=== PATIENT | female | born 1990 | race American Indian/Alaskan Native ===

== ENCOUNTER 2017-12-04 13:53 | Emergency (ER) | payer OTHER ==
--- NOTE | 2017-12-04 15:05 | Emergency Department Report ---
Blank Doc - Documentation Documentation: 27-year-old female with no past medical history presents to the hospital 20 weeks with her first with complaints of nasal congestion, sore throat , dry cough, and subjective fevers for the past 5 days. Today patient further, heart was racing. Positive shortness of breath reported without any calf tenderness, edema, recent travel, or history of PE/DVT. Patient taken over-the- counter cough and cold medicine but does not know all the ingredients in the medications. Positive care. Saad: Dr. López EKG sinus tach rate [address] elevation [place] focussed exam Tachycardic heart rate exam regular rhythm (rate 108) Positive nasal congestion No posterior pharyngeal exudates Lungs clear to auscultation abdomen nontender Labs ordered CBC, BMP, thyroid, INR Patient transferred to the main side for evaluation
--- NOTE | 2017-12-04 15:18 | Emergency Department Report ---
ED General Adult HPI - General Chief complaint: Arrhythmia/Palpitations Stated complaint: PALPITATIONS Time Seen by Provider: 12/04/17 14:51 Source: patient Mode of arrival: Ambulatory Limitations: No Limitations - History of Present Illness Initial comments: Patient is 27 years old female 20 weeks . Patient presented to the ER complaining of palpitation. Patient stated that she's been having runny nose cough congestion for the last 4 days. Today she took [id number] cough medicine that has Benadryl in it, she stated that as soon as she took it she started having palpitation. Patient denied any chest pain, shortness of breath or fever. Patient stated that baby is moving well, denied any abdominal pain, vaginal bleeding or vaginal discharge. - Related Data Previous Rx's Medication Instructions Recorded Last Taken Type Amoxicillin [Amoxicillin TAB] 875 mg PO BID #14 tablet 12/04/17 Unknown Rx Fluticasone [Flonase] 1 spray NS QDAY #1 bottle 12/04/17 Unknown Rx Allergies Allergy/AdvReac Type Severity Reaction Status Date / Time No Known Allergies Allergy Unverified 12/04/17 14:10 ED Review of Systems ROS: Stated complaint: PALPITATIONS Other details as noted in HPI Comment: All other systems reviewed and negative Constitutional: denies: chills, fever Respiratory: cough. denies: shortness of breath, SOB with exertion, SOB at rest , wheezing Cardiovascular: denies: chest pain, palpitations, dyspnea on exertion, orthopnea Gastrointestinal: denies: abdominal pain, nausea, vomiting, diarrhea, constipation, hematemesis, melena, hematochezia Genitourinary: denies: urgency, dysuria, frequency, hematuria, discharge Neurological: denies: headache, weakness, numbness, paresthesias ED Past Medical Hx - Past Medical History Previous Medical History?: No - Surgical History Past Surgical History?: No - Social History Smoking Status: Never Smoker Substance Use Type: None - Medications Home Medications: Home Medications Medication Instructions Recorded Confirmed Last Taken Type Amoxicillin [Amoxicillin TAB] 875 mg PO BID #14 tablet 12/04/17 Unknown Rx Fluticasone [Flonase] 1 spray NS QDAY #1 bottle 12/04/17 Unknown Rx ED Physical Exam - General Limitations: No Limitations General appearance: alert, in no apparent distress - Head Head exam: Present: atraumatic, normocephalic, normal inspection - Eye Eye exam: Present: normal appearance - ENT ENT exam: Present: normal exam, normal orophraynx, mucous membranes moist - Neck Neck exam: Present: normal inspection, full ROM. Absent: tenderness, meningismus, lymphadenopathy, thyromegaly - Respiratory Respiratory exam: Present: normal lung sounds bilaterally. Absent: respiratory distress, wheezes, rales, rhonchi, stridor, chest wall tenderness, accessory muscle use, decreased breath sounds, prolonged expiratory - Cardiovascular Cardiovascular Exam: Present: regular rate, normal rhythm, normal heart sounds. Absent: tachycardia - GI/Abdominal GI/Abdominal exam: Present: soft, normal bowel sounds, other (gravid uterus). Absent: distended, tenderness, guarding, rebound, rigid, mass, bruit, pulsatile mass, hernia - Extremities Exam Extremities exam: Present: normal inspection, full ROM, normal capillary refill. Absent: tenderness, pedal edema, joint swelling, calf tenderness - Back Exam Back exam: Present: normal inspection, full ROM. Absent: tenderness, CVA tenderness (R), CVA tenderness (L), muscle spasm, paraspinal tenderness, vertebral tenderness - Neurological Exam Neurological exam: Present: alert, oriented X3, CN II-XII intact, normal gait, reflexes normal - Skin Skin exam: Present: warm, intact, normal color ED Course Vital Signs 12/04/17 12/04/17 12/04/17 14:06 14:54 15:15 Temperature 98.1 F Pulse Rate 109 H 108 H 99 H Respiratory 20 13 Rate Blood Pressure 131/75 126/79 Blood Pressure [Right] O2 Sat by Pulse 100 98 100 Oximetry 12/04/17 12/04/17 12/04/17 15:16 15:17 16:00 Temperature 98.2 F Pulse Rate 96 H 98 H Respiratory 18 18 20 Rate Blood Pressure 121/79 Blood Pressure 117/74 [Right] O2 Sat by Pulse 100 100 Oximetry 12/04/17 17:00 Temperature Pulse Rate 96 H Respiratory 19 Rate Blood Pressure 121/79 Blood Pressure [Right] O2 Sat by Pulse 99 Oximetry ED Medical Decision Making - Lab Data Result diagrams: 12/04/17 15:49 12/04/17 15:49 - EKG Data -: EKG Interpreted by Pa EKG shows normal: sinus rhythm Rate: tachycardia - EKG Data Interpretation: no acute changes - Medical Decision Making Patient stated that her symptoms is completely resolved. However heart rate now is 85 beats per minutes. Patient denied any chest pain or shortness of breath. No clinical evidence of pulmonary embolism. I believe this patient's symptom is most likely due to [id number] cough medicine since her symptoms started immediately after she took that medicine. I advised the patient to follow up with her primary care physician in the next 2-3 days and to return to the ER if her symptoms are not improving. Critical care attestation.: If time is entered above; I have spent that time in minutes in the direct care of this critically ill patient, excluding procedure time. ED Disposition Clinical Impression: Sinusitis, Palpitation Disposition: DC-01 TO HOME OR SELFCARE Is pt being admited?: No Condition: Stable Instructions: Palpitations (ED), Sinusitis (ED) Prescriptions: Amoxicillin [Amoxicillin TAB] 875 mg PO BID #14 tablet Fluticasone [Flonase] 1 spray NS QDAY #1 bottle Referrals: PRIMARY CARE, [Primary Care Provider] - 3-5 Days Forms: Work/School Release Form(ED)
[2017-12-04 16:09] LABS: Basophils % (Auto) 0.3 % (0.0-1.8); Eosinophils % (Auto) 0.7 % (0.0-4.3); Hematocrit 29.4 % (30.3-42.9); Hemoglobin 9.9 gm/dl (10.1-14.3); Lymphocytes # (Auto) 0.9 K/mm3 (1.2-5.4); Mean Corpuscular HGB Conc 34 % (30-34); Mean Corpuscular Hemoglobin 31 pg (28-32); Mean Corpuscular Volume 93 fl (79-97); Monocytes # (Auto) 0.5 K/mm3 (0.0-0.8); Monocytes % (Auto) 7.9 % (0.0-7.3); Platelet Count 175 K/mm3 (140-440); Red Blood Count 3.17 M/mm3 (3.65-5.03)
[2017-12-04 16:19] LABS: INR 0.92 (0.87-1.13)
[2017-12-04 16:23] LABS: BUN/Creatinine Ratio 10; Blood Urea Nitrogen 6 mg/dL (7-17); Calcium 8.5 mg/dL (8.4-10.2); Hemolysis Index 2
[2017-12-04 16:34] LABS: Free T4 (Free Thyroxine) 0.88 ng/dL (0.76-1.46)
[2017-12-04 17:24] VITALS: BP 121/79
== END 2017-12-04 17:31 | disposition home or self-care (01) ==
LOC: ED 13:53
DX: J32.9 Chronic sinusitis, unspecified (principal)
CPT/HCPCS: 36415; 80048; 84439; 84443; 85025; 85610; 93005; 93010; 99283

== ENCOUNTER 2018-01-12 07:53 | Outpatient (CLI) | payer OTHER | END 2018-01-12 07:54 | disposition home or self-care (01) | LOC: VAS 07:53 | PROVIDERS: ATTEND Obstetrics & Gynecology | DX: Z34.02 Encounter for supervision of normal first pregnancy, second trimester (principal); M79.661 Pain in right lower leg; M79.662 Pain in left lower leg; Z3A.27 27 weeks gestation of pregnancy | CPT/HCPCS: 93970 ==